=== PATIENT | male | born 1975 | race Caucasian/White ===

== ENCOUNTER 2019-06-01 20:04 | Inpatient (IN) | payer MEDICAID ==
[~2019-06-01] VITALS: Ht 177.8 cm; Wt 100.9 kg
[2019-06-01 20:41] LABS: BASOPHILS 0.2 % (0-2); EOSINOPHILS 1.1 % (0-7); HEMATOCRIT 46.4 % (42.0-54.0); HEMOGLOBIN 15.8 g/dL (13.5-17.5); IMMATURE GRANULOCYTES 0.3 % (0-5); LYMPHOCYTES 32.7 % (15-50); MCHC 34.1 g/dL (31.0-37.0); MCV 93.9 fL (80.0-100.0); MEAN PLATELET VOLUME 10.1 fL (7.4-10.4); MONOCYTES 8.8 % (2-11); NEUTROPHILS 56.9 % (40-80); PLATELET COUNT 212 10x3/uL (130-400); RBC 4.94 10x6/uL (4.20-6.10); RDW 12.7 % (11.5-14.5); WBC 14.2 10x3/uL (4.8-10.8)
[2019-06-01 20:53] LABS: CALC OSMOLALITY 277 mosm/kg (275-300); CALCIUM 9.3 mg/dL (8.5-10.1); CARBON DIOXIDE 30.8 mmol/L (21.0-32.0); CHLORIDE - SERUM 101 mmol/L (98-107); CREATININE - SERUM 1.1 mg/dL (0.6-1.3); GLUCOSE 115 mg/dL (74-106); POTASSIUM - SERUM 3.6 mmol/L (3.5-5.1); SODIUM 139 mmol/L (136-145); UREA NITROGEN 10 mg/dL (7-18); eGFR NON AFRICAN AMERICAN 77 mL/min (90-120)
[2019-06-01 21:04] LABS: ALKALINE PHOSPHATASE 92 U/L (46-116); ALT (SGPT) 100 U/L (10-68); BILIRUBIN - TOTAL 0.37 mg/dL (0.2-1.3); CREATINE KINASE 125 UL (21-232); PROTEIN - SERUM 7.8 g/dL (6.4-8.2); TROPONIN-I < 0.017 ng/mL (0.000-0.060)
--- NOTE | 2019-06-01 21:13 | NUR ---
PT STATES HE TOOK 325MG ASA PRIOR TO ARRIVAL.
[2019-06-01 21:36] VITALS: BP 138/90
[2019-06-01 22:00] VITALS: BP 140/100
[2019-06-01 22:30] VITALS: BP 138/90
[2019-06-01 22:47] LABS: INR 0.83 (0.85-1.17); PROTIME 11.4 SECONDS (11.6-15.0)
[2019-06-02 01:26] VITALS: BP 135/90; Ht 177.8 cm; Wt 100.9 kg
[2019-06-02 02:49] LABS: APPEARANCE CLEAR (CLEAR); BILIRUBIN NEGATIVE (NEGATIVE); COLOR YELLOW (YELLOW); GLUCOSE NEGATIVE (NEGATIVE); KETONE NEGATIVE (NEGATIVE); NITRITE NEGATIVE (NEGATIVE); PROTEIN NEGATIVE (NEGATIVE); UROBILINOGEN NORMAL (NORMAL)
--- NOTE | 2019-06-02 03:36 | NUR ---
RECEIVED REPORT FROM ABE PARKER IN ER. ARRIVED TO FLOOR IN W/C. A/O X4. UP AD XUAN TO B/R. GOOD HISTORIAN. FATHER AT BEDSIDE. O2@ 2 LITERS PER N/C WITH O2 SAT 84%. IV TO RIGHT HAND WITH ZITHROMAX IN FUSING AT THIS TIME. U/A AND STRP SWAB COLLECTED. ORIENTED TO ROOM, MEAL TIMES AND SHIFT TIMES. DENIES ANY OTHER NEEDS. AlSO, SPUTUM CONTAINER LEFT IN ROOM AND INTRUCTIONS GIVEN TO PT WITH VERBAL UNDERSTANDING.
[2019-06-02 04:00] VITALS: BP 118/71
[2019-06-02 06:12] LABS: BASOPHILS 0.1 % (0-2); EOSINOPHILS 0.2 % (0-7); HEMATOCRIT 43.4 % (42.0-54.0); HEMOGLOBIN 14.6 g/dL (13.5-17.5); IMMATURE GRANULOCYTES 0.2 % (0-5); LYMPHOCYTES 12.4 % (15-50); MCH 31.7 pg (26.0-34.0); MCHC 33.6 g/dL (31.0-37.0); MCV 94.3 fL (80.0-100.0); MEAN PLATELET VOLUME 10.6 fL (7.4-10.4); MONOCYTES 1.7 % (2-11); NEUTROPHILS 85.4 % (40-80); PLATELET COUNT 208 10x3/uL (130-400); RDW 12.9 % (11.5-14.5); WBC 12.6 10x3/uL (4.8-10.8)
[2019-06-02 06:56] LABS: CALC OSMOLALITY 280 mosm/kg (275-300); CALCIUM 8.9 mg/dL (8.5-10.1); CARBON DIOXIDE 29.6 mmol/L (21.0-32.0); CHLORIDE - SERUM 103 mmol/L (98-107); CKMB 0.6 U/L (0.0-3.6); CREATINE KINASE 88 UL (21-232); CREATININE - SERUM 1.1 mg/dL (0.6-1.3); GLUCOSE 155 mg/dL (74-106); PHOSPHOROUS 3.5 mg/dL (2.5-4.9); SODIUM 140 mmol/L (136-145); TROPONIN-I < 0.017 ng/mL (0.000-0.060); UREA NITROGEN 10 mg/dL (7-18); eGFR NON AFRICAN AMERICAN 77 mL/min (90-120)
[2019-06-02 07:00] LABS: POTASSIUM - SERUM 4.6 mmol/L (3.5-5.1)
--- NOTE | 2019-06-02 08:38 | NUR ---
BEDSIDE SHIFT COMPLETE. PATIENT IS AWAKE AND ALERT.SITTING UP IN BED EATTING BREAKFAST. HE DENIES ANY NEEDS AT THIS TIME.
[2019-06-02 10:01] VITALS: BP 149/86
[2019-06-02 13:04] VITALS: BP 166/72
--- NOTE | 2019-06-02 15:53 | NUR ---
INFILTRATED IV REMOVED FROM RIGHT FOREARM CATHETER INTACT. 20 G PLACED IN LEFT FOREARM ONE STICK.
[2019-06-02 16:26] VITALS: BP 133/82
[2019-06-02] MEDS ORDERED: VALIUM5 MG PO (17:38)
[2019-06-02 20:00] VITALS: BP 131/75
--- NOTE | 2019-06-02 21:27 | NUR ---
EVENING ROUNDS COMPLETED. VSS, AAOX4, NO S/S RT DISTRESS. PT RESTING IN BED, ALTHOUGH HAVE HEAD OF BED REVERSE [place]. 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 PT STATES HE ACCIDENTAL LOST HIS NICOTINE PATCH WHILE TAKING A SHOWER TODAY, AND HE IS BEEN WANTING TO GO OUT AND SMOKE PRETTY BAD. WILL ADMINISTER NEXT DOSE OF PATCH A LITTLE EARLY. PT DENIES ANY FURTHER NEEDS AT THIS TIME. WILL CPOC.
[2019-06-03] VITALS: BP 110/61
[2019-06-03 04:00] VITALS: BP 101/57
[2019-06-03 06:15] LABS: BASOPHILS 0 % (0-2); EOSINOPHILS 0 % (0-7); HEMATOCRIT 40.8 % (42.0-54.0); HEMOGLOBIN 13.7 g/dL (13.5-17.5); IMMATURE GRANULOCYTES 0.4 % (0-5); LYMPHOCYTES 14.6 % (15-50); MCH 31.5 pg (26.0-34.0); MCHC 33.6 g/dL (31.0-37.0); MCV 93.8 fL (80.0-100.0); MEAN PLATELET VOLUME 10.6 fL (7.4-10.4); MONOCYTES 3.9 % (2-11); NEUTROPHILS 81.1 % (40-80); PLATELET COUNT 212 10x3/uL (130-400); RBC 4.35 10x6/uL (4.20-6.10); RDW 13.1 % (11.5-14.5)
[2019-06-03 06:46] LABS: CALC OSMOLALITY 282 mosm/kg (275-300); CALCIUM 8.9 mg/dL (8.5-10.1); CHLORIDE - SERUM 104 mmol/L (98-107); GLUCOSE 158 mg/dL (74-106); PHOSPHOROUS 3.7 mg/dL (2.5-4.9); POTASSIUM - SERUM 4.1 mmol/L (3.5-5.1); SODIUM 141 mmol/L (136-145); UREA NITROGEN 11 mg/dL (7-18); eGFR NON AFRICAN AMERICAN 86 mL/min (90-120)
--- NOTE | 2019-06-03 08:22 | NUR ---
RECIEVED REPORT. PATIENT IS AWAKE AND ALERT. REPORTS FEELING A LITTLE BETTER. REPORTS LESS ANXIETY THEN HE HAD LAST NIGHT. DENIES ANY NEEDS AT THIS TIME.
[2019-06-03 12:12] VITALS: BP 143/80
[2019-06-03 16:19] VITALS: BP 159/88
--- NOTE | 2019-06-03 17:41 | NUR ---
PATIENT IS FREQUENTLY UP, WALKING AROUND THE UNIT. HE IS REQUESTING CABBAGE ROLLS AND CISNEROS COBBLER. HE IS WALKING QUICKLY AROUND THE UNIT WITH JEANS AND BOOTS ON WITH A STOCKING CAP AND HIS HOSPITAL GOWN. HE IS DRINKING SEVERAL CUPS OF COFFEE THROUGHOUT THE DAY. HE IS ALERT AND ORIENTED AND REPORTS FEELING MUCH BETTER.
[2019-06-03 20:30] VITALS: BP 128/80
--- NOTE | 2019-06-04 00:25 | NUR ---
PT ALERT AND ORIENTED x4. NO SIGNS OR SYMPTOMS OF DISTRESS NOTED. RESPIRATIONS EVEN AND UNLABORED. PT IS AMBULATORY, AND WALKS FREQUENTLY. UP AID XUAN. CONTINENT OF BOWELL AND URINE. BOWELL SOUNDS ACTIVE x4 PT STATES LAST BOWELL MOVEMENT WAS 06/03/19. PRN MEDICATION GIVEN FOR VALIUM GIVEN FOR ANXIETY. PT TOLERATED WELL. PT WANTS TO SLEEP FOR 0400 VITAL SIGNS. PT ENCOURAGED TO CALL FOR HELP WHEN NEEDED. CALL LIGHT IS WITH IN REACH AND BED IS IN LOWEST POSITION. WILL CONTINUE TO MONITOR.
[2019-06-04 00:30] VITALS: BP 126/64
--- NOTE | 2019-06-04 04:11 | NUR ---
I have reviewed this patient and I concur with the Shift Assessment completed by the Licensed Practical Nurse today this shift.
[2019-06-04 05:45] LABS: BASOPHILS 0 % (0-2); EOSINOPHILS 0 % (0-7); HEMATOCRIT 40.6 % (42.0-54.0); HEMOGLOBIN 13.6 g/dL (13.5-17.5); IMMATURE GRANULOCYTES 0.3 % (0-5); LYMPHOCYTES 20.8 % (15-50); MCH 31.6 pg (26.0-34.0); MCHC 33.5 g/dL (31.0-37.0); MCV 94.2 fL (80.0-100.0); MONOCYTES 6.1 % (2-11); NEUTROPHILS 72.8 % (40-80); PLATELET COUNT 214 10x3/uL (130-400); RBC 4.31 10x6/uL (4.20-6.10); RDW 13.2 % (11.5-14.5); WBC 15.3 10x3/uL (4.8-10.8)
[2019-06-04 06:10] LABS: CALC OSMOLALITY 283 mosm/kg (275-300); CALCIUM 8.6 mg/dL (8.5-10.1); CARBON DIOXIDE 27.5 mmol/L (21.0-32.0); CHLORIDE - SERUM 105 mmol/L (98-107); GLUCOSE 147 mg/dL (74-106); MAGNESIUM - SERUM 2.1 mg/dL (1.8-2.4); SODIUM 141 mmol/L (136-145); UREA NITROGEN 12 mg/dL (7-18); eGFR NON AFRICAN AMERICAN 86 mL/min (90-120)
[2019-06-04 07:46] VITALS: BP 132/79
--- NOTE | 2019-06-04 07:58 | NUR ---
SITTING UP IN CHAIR IN ROOM ON ROOM AIR IN NO ACUTE DISTRESS. STATES HE IS FEELING BETTER. A&O X4. PLAN FOR TODAY REVIEWED. STATES NO NEEDS AT THIS TIME
[2019-06-04] MEDS ORDERED: Nystatin Oral Susp [ PO (15:00)
[2019-06-04] MEDS ORDERED: ALBUTEROL2.5 MG/3 M UPD (15:01)
[2019-06-04] MEDS ORDERED: IBUPROFEN400 MG PO (15:01)
[2019-06-04] MEDS ORDERED: ZITHROMAX250 MG PO (15:02)
[2019-06-04] MEDS ORDERED: OMNICEF300 MG PO (15:02)
[2019-06-04] MEDS ORDERED: FLORAJEN3 CAPS460 MG PO (15:02)
[2019-06-04] MEDS ORDERED: TESSALON PERLE100 MG PO (15:02)
[2019-06-04] MEDS ORDERED: MEDROL DOSE PACK4 MG PO (15:02)
[2019-06-04] MEDS ORDERED: MUCINEX600 MG PO (15:02)
[2019-06-04 15:38] VITALS: BP 153/89
--- NOTE | 2019-06-04 16:25 | MORECARE ---
CASE MANAGEMENT DISCHARGE SUMMARY PATIENT: HALEY HIDALGO UNIT: [id number] ADM DATE: 06/01/19 AGE: 43 : 71 SEX: M ROOM/BED: D.8763 AUTHOR: DEANNA,DOC PHYSICIAN: REFERRING PHYSICIAN: TUTU SINGH DO DATE OF SERVICE: 06/04/19 Discharge Plan Patient Name: HALEY HIDALGO Facility: [facility]:[place] : 1975 Planned Disposition: Home Anticipated Discharge Date: 06/04/19 Discharge Date: Expected LOS: 3 Initial Reviewer: [email or web address] Initial Review Date: 06/04/2019 Generated: 06/04/19 5:25 pm Comments DCP- Discharge Planning Updated by SANTIAGO: Jacques Fan on 06/04/19 3:[address] Patient Name: HALEY HIDALGO Admission Status: ER Accout number: [id number] Admission Date: 06-01-2019 : 1975 Admission Diagnosis: Attending: TUTU SINGH Current LOS: 3 Anticipated DC Date: 06-04-2019 Planned Disposition: Home Primary Insurance: MEDICAID [place] PENDING Discharge Planning Comments: CM MET WITH PT IN ROOM TO DISCUSS DISCHARGE PLANNING AND NEEDS. PT REPORTS LIVING AT HOME INDEPENDENTLY AND ALONE. PT HAS NO MEDICAL EQUIPMENT AND NO OUTSIDE SERVICES ASSISTING IN THE HOME. CM DISCUSSED AVAILABILITY OF HOME HEALTH, REHAB SERVICES AND MEDICAL EQUIPMENT. PT DENIES DISCHARGE NEEDS, REPORTS HIS PARENTS WILL PICK HIM UP FOR DISCHARGE HOME. CM DISCUSSED MEDICAID PENDING STATUS, EDUATED ON FOLLOW UP IN TWO WEEKS AT LOCAL [facility] IF HE HAS NOT RECEIVED DETERMINATION. PT IS AWARE OF LOCAL "[facility]" OFFICE LOCATION AND WILL FOLLOW UP WITH THEM. PT HAS MONEY IN THE BANK FOR MEDICATIONS / LIVING EXPENSES, DENIES FURTHER NEEDS. PAYROLL ACCOUNTANT NURSE NOTIFED. Rubbish Collector: Jacques Fan DCPIA - Discharge Planning Initial Assessment Updated by [id number]: Jacques Fan on 06/04/19 4:17 pm * Is the patient Alert and Oriented? Yes * How many steps to enter\\exit or inside your home? * PCP DR RUFFIN * Pharmacy [facility] * Preadmission Environment Home Alone * ADLs Independent * Equipment None * Other Equipment NO MEDICAL EQUIPMENT PROVIDER PREFERENCE * List name and contact numbers for known caregivers / representatives who currently or will assist patient after discharge: REINALDO HIDALGO, FATHER, * Verbal permission to speak to the caregivers and representatives has been obtained from the patient. N/A * Community resources currently utilized None * Please name any agencies selected above. NONE * Additional services required to return to the preadmission environment? No * Can the patient safely return to the preadmission environment? Yes * Has this patient been hospitalized within the prior 30 days at any hospital? No Patient Name: HALEY HIDALGO Page [id number] at 1625 All edits/amendments must be made on the electronic document DICTATION DATE: 06/04/191624 FLOOR BROKER: ALICJA 06/04/191624 RPT#: [id number] DC DATE: STATUS: ADM IN [facility] [address] [place] [address] END OF REPORT
--- NOTE | 2019-06-04 17:37 | NUR ---
DISCHARGE INSTRUCTIONS REVIEWED WITH PT AND VERBALIZES UNDERSTANDING WITH NO QUESTIONS. SL REMOVED WITHOUT DIFFICULTY AND CATH TIP INTACT. LEFT FACILITY VIA PRIVATE VEHICLE WITH HIS FATHER. ALL PERSONAL BELONGINGS TAKEN WITH HIM.
== END 2019-06-04 17:48 | disposition home or self-care (01) | DRG 194 ==
LOC: D.ER 20:04 → D.M2 23:33
PROVIDERS: Emergency Medicine; ADMIT Family Medicine; ATTEND Family Medicine
DX: J18.9 Pneumonia, unspecified organism (principal); B37.0 Candidal stomatitis; F17.213 Nicotine dependence, cigarettes, with withdrawal; F41.9 Anxiety disorder, unspecified; K21.9 Gastro-esophageal reflux disease without esophagitis; R74.0 Nonspecific elevation of levels of transaminase and lactic acid dehydrogenase [LDH]

== ENCOUNTER → 2020-09-14 07:57 | Outpatient (CLI) | payer OTHER ==
[2019-06-02 01:26] VITALS: BMI 31.9
[~2020-09-14 07:57] MED LIST: ALBUTEROL2.5 MG/3 M UPD; FLORAJEN3 CAPS460 MG PO; IBUPROFEN400 MG PO; MEDROL DOSE PACK4 MG PO; MUCINEX600 MG PO; Nystatin Oral Susp [ PO; OMNICEF300 MG PO; TESSALON PERLE100 MG PO; VALIUM5 MG PO; ZITHROMAX250 MG PO
== END | disposition home or self-care (01) ==
LOC: D.NM 07:57
PROVIDERS: ATTEND Family Medicine
DX: R10.9 Unspecified abdominal pain (principal)